=== PATIENT | male | born 1965 | race Caucasian/White ===

== ENCOUNTER 2017-01-17 09:02 | Inpatient (IN) | payer OTHER ==
[~2017-01-17] VITALS: Ht 180.3 cm; Wt 80.7 kg
[2017-01-17] VITALS (10 sets, daily range): BP systolic 101–128; BP diastolic 78–95
--- NOTE | ~2017-01-17 | S ---
[facility] [place] [address] SURGICAL PATH RPT PROCEDURE Name: KEENA DAS Room #: 542-P [facility] IN M.R.#: [id number] Admission: 01/17/17 Date of : 63 Discharge: 01/20/17 Report #: [id number] Path Case #: [id number] PATHOLOGY REPORT COLLECTION DATE: 01/18/2017 RECEIVED DATE: 01/19/2017 SUBMITTING PHYS: Dr. Breana Morales OTHER PHYS: Dr. London García SPECIMEN(S) RECEIVED: A.Appendiceal orifices bx B.Proximal ascending polyp x 3 C.Distal ascending polyp x 1 D.Proximal transverse polyp x 2 E.Mid transverse polyp x 2 F.25 cm polyp * * * * * * * * * * * * FINAL DIAGNOSIS: A. Appendiceal orifice, endoscopic biopsy: - Two fragments showing hyperplastic polyp. - Negative for dysplasia. B. Polyp, proximal ascending polyp x 3, endoscopic biopsy: - One fragment showing tubular adenoma without high-grade dysplasia. - Remainder of fragments of vegetable material as well as reactive hyperplastic changes without dysplasia. C. Polyp, distal ascending polyp, endoscopic biopsy: - One fragment showing cauterized tubular adenoma without high-grade dysplasia. - Second fragment showing hyperplastic polyp without dysplasia. D. Polyp, proximal transverse polyp x 2, endoscopic biopsy: - One fragment showing cauterized tubular adenoma without high-grade dysplasia. - Second fragment showing hyperplastic polyp without dysplasia. E. Polyp, mid transverse polyp x 2, endoscopic biopsy: - Cauterized hyperplastic polyp. - Negative for dysplasia. F. Polyp, 25 cm polyp, endoscopic biopsy: - 2.1 cm tubulovillous adenoma. - Negative for high-grade dysplasia. - Cauterized/inked margin showing unremarkable mucosa without dysplasia. (IUV:mgr; d/t: 01/22/17) PATHOLOGIST: Lisy Mccann M.D. REPORT ELECTRONICALLY SIGNED BY: Lisy Mccann M.D. [address] [address] SURGICAL PATH RPT PROCEDURE Name: KEENA DAS Room #: 542-P [facility] IN [facility].#: [id number] Admission: 01/17/17 Date of : 63 Discharge: 01/20/17 Report #: [id number] Path Case #: [id number] DATE/TIME: 01/22/2017 14:04 * * * * * * * * * * * * GROSS PATHOLOGY: A. Received in formalin labeled "Keena Das, appendiceal BX," are 3 segments of lundberg soft tissue measuring 0.5 x 0.2 x 0.2 cm in aggregate dimensions and ranging from 0.1 to 0.2 cm in maximum dimension. The specimen is submitted entirely in cassette A1. B. Received in formalin labeled " Keena Das, proximal ascending polyp x3," are more than 10 segments of lundberg soft tissue measuring 2.3 x 1.0 x 0.4 cm in aggregate dimensions and ranging from less than 0.1 to 0.6 cm in maximum dimension. The specimen is submitted entirely in cassette B1. C. Received in formalin labeled " Keena Das, distal ascending polyp," are 2 segments of lundberg soft tissue measuring 0.5 x 0.2 x 0.2 cm in aggregate dimensions and ranging from 0.2 to 0.3 cm in maximum dimension, along with very minute small dark green fragments. The specimen is submitted entirely in cassette C1. D. Received in formalin labeled " Keena Das, proximal transverse polyp 2," are 2 segments of lundberg soft tissue measuring 0.7 x 0.3 x 0.2 cm in aggregate dimensions and ranging from 0.3 to 0.4 cm in maximum dimension. The specimen is submitted entirely in cassette D1. E. Received in formalin labeled " Keena Das, mid transverse polyp 2," are 2 segments of lundberg soft tissue measuring 0.6 x 0.3 x 0.2 cm in aggregate dimensions and ranging from 0.2 to 0.4 cm in maximum dimension. The specimen is submitted entirely in cassette E1. F. Received in formalin labeled " Keena Das, polyp at 25 cm," is a 2.1 x 2.0 x 1.3 cm polypoid piece of lundberg soft tissue. The margin is inked and the tissue is sectioned perpendicular to the margin into 4 segments and submitted in its entirety in cassettes F1 and F2. (VAHE; 01/19/2017) CLINICAL HISTORY: GI bleed INITIAL CPT CODE(S): A; 11845 B; 25394 C; 64746 D; 37307 E; 85467 F; 42138 Professional services performed by [facility] at [address] [address] SURGICAL PATH RPT PROCEDURE Name: KEENA DAS Room #: 542-P DIS IN M.R.#: [id number] Admission: 01/17/17 Date of : 63 Discharge: 01/20/17 Report #: [id number] Path Case #: [id number] [address], [place] [address] Technical services performed by [facility] at [address] [place] [address], [place] [address]. [facility] [address] [place] [address] PHONE: [phone] DIRECTOR: Aristides Alves M.D. * * * END OF REPORT * * *
--- NOTE | ~2017-01-17 | HC ---
[facility] [place] [address] CONSULTATION Name: KEENA DAS Room #: 542-P [facility] IN ..#: [id number] Admission: 01/17/17 Attend Phys: Luca García MD, Discharge: 01/20/17 Date of : 63 Report #: [id number] THIS REPORT FOR: //name// CC: Ruddy Morales DO Luca García MD [facility] London Gillette MD DATE OF SERVICE: 01/18/2017 REASON FOR CONSULTATION: Lower GI bleed. 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 He developed maroon stools, nausea, and abdominal discomfort around 5:00 yesterday morning. He reports having had diarrhea the prior evening. He was seen at [facility] with these symptoms and was found to have a hemoglobin of 9.5. CT at [facility] showed a left upper kidney mass and endoluminal gastric masses consistent with polyps. The patient was transferred to [facility]. The gastroenterology service (Dr. Breana Morales) was consulted and the patient underwent an EGD, which showed no evidence for bleeding. Gastric polyps were seen; however, they were not resected/biopsied so as not to confuse the situation. The patient then underwent a tagged red blood cell scan, which showed suspected right colon activity concerning for hemorrhage. The patient was taken for mesenteric angiography, which showed no evidence for bleeding. The patient had continued bleeding and was monitored closely in the intensive care unit. He received 1 unit of packed red blood cells and he was taken for a colonoscopy today by Dr. Morales. Multiple large polyps were seen/removed except or a polyps at the appendiceal orifice. The largest polyp was located at 27 cm in the sigmoid colon. Hot snare polypectomy was performed here as well. The patient had immediate arterial bleeding after the pedunculated stalk was divided. Bleeding appeared to be arterial and was such that Dr. Morales was unable to visualize or control it. The patient has received 2 more units of packed red blood cells and has been relatively hemodynamically stable with a systolic blood pressure in the 120s and heart rate is at or slightly above 100 beats per minute and the patient was also mildly confused. I have been asked to see the patient for further evaluation and treatment. 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 PAST SURGICAL HISTORY: Includes exploratory laparotomy for a ruptured Meckel's diverticulum 8 years ago. The patient also underwent an appendectomy at that time. He developed ARDS and was hospitalized, here at [facility] for several weeks. He has also undergone a cholecystectomy. [address] [address] CONSULTATION Name: KEENA DAS Room #: 542-P DIS IN M.R.#: [id number] Admission: 01/17/17 Attend Phys: Luca García MD, Discharge: 01/20/17 Date of : 63 Report #: [id number] MEDICATIONS: Include Bystolic, Florinef, prednisone (10 mg q. a.m.; 5 mg q. p.m.) and omeprazole. ALLERGIES: No known drug allergies. FAMILY HISTORY: Significant for coronary artery disease in his father, who also had rectal cancer and likely had polyposis according the patient. SOCIAL HISTORY: The patient denies any use of tobacco or illicit drugs. He drinks alcohol socially. 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 REVIEW OF SYSTEMS: As per history of present illness. In addition, GENERAL: The patient denies unintentional weight loss. Denies fever or chills. HEENT: Denies changes in taste, vision, hearing, or smell. RESPIRATORY: Denies shortness of breath, COPD, or asthma. CARDIOVASCULAR: No chest pain or palpitations. GASTROINTESTINAL: As per history of present illness. GENITOURINARY: Denies dysuria, urgency, increased urinary frequency, or hematuria. MUSCULOSKELETAL: Denies myalgia or arthralgia. NEUROLOGIC: Denies headaches, numbness, or tingling. PSYCHIATRIC: Denies depression, anxiety, or suicidal ideations. SKIN AND INTEGUMENTARY: Denies new skin lesions, rashes, or moles. ENDOCRINE: Denies polydipsia, polyuria, heat or cold intolerance. HEMATOLOGIC: Denies easy bleeding or bruising. All other review of systems is negative. PHYSICAL EXAMINATION: VITAL SIGNS: Temperature 98.2, blood pressure 102/79, pulse 98, and respirations 21. GENERAL: This is a well-developed, well-nourished, mildly confused 51-year-old male patient who appears slightly distressed. HEENT: Atraumatic, normocephalic with moist mucosal membranes. Oropharynx is clear. NECK: Supple, no appreciable lymphadenopathy. Trachea is midline. CHEST: No respiratory distress. CARDIOVASCULAR: Regular rate and rhythm. ABDOMEN: Soft, but mildly tender to palpation with no rebound or guarding. No palpable masses. No appreciable hernias. EXTREMITIES: No clubbing, cyanosis or edema. NEUROLOGIC: Cranial nerves 2-12 are grossly intact. PSYCHIATRIC: Normal mood and affect. SKIN AND INTEGUMENTARY: No acute inflammatory changes, rashes or lesions are [facility] [address] [place] [address] CONSULTATION Name: KEENA DAS Room #: 542-P [facility] IN M.R.#: [id number] Admission: 01/17/17 Attend Phys: Luca García MD, Discharge: 01/20/17 Date of : 63 Report #: [id number] present. LABORATORY DATA: The patient's hemoglobin had gone from 9.5-9.0 yesterday. His most current hemoglobin after being given packed red blood cell is 9.1. It had dropped as low as 6.9 earlier today. White blood cell count was 11.4, hematocrit 25.3 and platelets 199. INR was 1.1. RADIOLOGIC STUDIES: As noted above including his CT scan from [facility], his nuclear medicine scan, and his mesenteric angiogram. IMPRESSION AND PLAN: This is a 51-year-old male patient with a lower gastrointestinal bleed, colonic (and gastric) polyposis, Bleckley's disease, gastroesophageal reflux disease, hypertension, and hypercholesterolemia. He will need emergent mesenteric angiography to attempt to identify the area of bleeding. If able to be identified, he may be a candidate for coil embolization with control of the hemorrhage. This must be undertaken emergently. I have discussed with interventional radiology (Dr. Ruddy Reyes), who has recommended potential CT angio to attempt to identify the bleeding as well. The patient is currently hemodynamically stable, but is requiring blood and is slightly confused. Further recommendations will be made pending results of that study. In addition, dependent upon the pathology from his colonoscopy, the patient will either need surveillance (conoscopy in 1 year) or resection. Continue treatment for Bleckley's disease, reflux and hypertension. I will follow along with you. I am available if needed for operative intervention. I sincerely appreciate the opportunity to participate in the care of this patient and we will leave further recommendations and orders in the electronic medical record as appropriate. <ELECTRONICALLY SIGNED> By: Bharat Torres MD, FACS 01/22/17 1407 1410 2223 Bharat Torres MD, FACS /nt
--- NOTE | ~2017-01-17 | EKG ---
[address] [place] [address] ELECTROCARDIOGRAM REPORT Name: KEENA DAS Room #: 241-P ADM IN M.R.#: [id number] Admission: 01/17/17 Attend Phys: Luca García MD, Discharge: Date of : 63 Report #: [id number] THIS REPORT FOR: //name// [facility] Test Date: 2017-01-17 Test Time: 12:07:01 Pat Name: KEENA DAS Department: Room: 241 P Gender: M Slag Worker: DAVID : 1965 Requested By: Luca García Order Number: [id number] MD: Chris Macias Measurements Intervals Patten Rate: 109 P: 41 WI: 148 QRS: 10 QRSD: 90 T: 32 QT: 318 QTc: 429 Interpretive Statements Sinus tachycardia Nonspecific ST segment abnormality Compared to ECG 10/02/2008 19:01:36 No significant changes Electronically Signed On 01-18-2017 7:41:25 CDT by Chris Macias [email or web address] <ELECTRONICALLY SIGNED> By: Chris Macias MD, [facility] 01/18/17 0741 D: 05/1206 06 Chris Macias MD, FACC /EPI
--- NOTE | ~2017-01-17 | P ---
[facility] [place] [address] PROCEDURE REPORT Name: KEENA DAS Room #: 241-P [facility] IN M.R.#: [id number] Admission: 01/17/17 Attend Phys: Luca García MD, Discharge: Date of : 63 Report #: [id number] THIS REPORT FOR: //name// CC: Luca García MD [facility] London Gillette MD DATE OF SERVICE: 01/17/2017 PATIENT OF: Dr. Luca García and Dr. London Gillette. PROCEDURE: Diagnostic EGD. INDICATION FOR PROCEDURE: This patient has had melanotic stool and drop in hemoglobin, uncertain etiology. EGD is being performed to evaluate a proximal source. Informed consent for this procedure was obtained prior to the administration of any medication. The risks of the procedure, which include bleeding, perforation, infection, complications of sedation, and the possibility I could miss something have been explained to the patient and he has indicated his consent by signing. Propofol and ketamine were slowly titrated before and during this procedure for the patient comfort by the anesthesia service. The [employer] upper videoscope was introduced through the upper esophageal sphincter and advanced under direct visualization to the third portion of the duodenum. Findings are noted on withdrawal of the scope. The duodenal mucosa appears normal throughout its entirety and no blood was seen in the duodenum, there is no obvious source of bleeding from the duodenum. Scope was withdrawn into the pylorus, which appears normal. Antrum, normal mucosa. Body, there are several large 1-2 cm in size polyps in the gastric body. None of these appear to have been bleeding. There is no blood in the stomach. I did not remove these polyps, I suspect they are secondary to proton pump inhibitors. There is retained food in the proximal stomach that I could not clear preventing visualization of this area, but there was no evidence of any blood in this area by either, the cardia and the fundus were visualized and appeared normal. I suspect he may have some element of gastroparesis for some reason. The scope was withdrawn to the esophagus. The Z-line is appropriately located at the top of the gastric folds and appears normal. The esophageal mucosa appears normal throughout its entirety. The scope was withdrawn. The patient was recovered in the room in ICU. He tolerated the procedure well. IMPRESSION: Gastric polyps as described above, not removed as the patient is having acute gastrointestinal bleed and so as not to confuse the issue. Other [address] [address] PROCEDURE REPORT Name: PIPPAKEENA Room #: 241-P [facility] IN ..#: [id number] Admission: 01/17/17 Attend Phys: Luca García MD, Discharge: Date of : 63 Report #: [id number] than that, normal esophagogastroduodenoscopy to the third portion of the duodenum. RECOMMENDATIONS: My recommendations at this point are to proceed with a nuclear medicine GI bleeding scan. We will monitor his H and H closely. He may need to have a gastric emptying study at some point. Thank you very much once again for allowing me to participate in his care, Dr. García and Dr. Gillette. <ELECTRONICALLY SIGNED> By: Breana Morales DO 01/18/17 1819 0851 1122 Breana Morales DO /nt
--- NOTE | ~2017-01-17 | H ---
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 He was transferred here from [facility] where he had went in with GI bleed, shortly after 5:00 a.m. this morning. The patient has a history of a small bowel resection with ruptured Meckel's diverticulum and complicated with ARDS, this is 5-6 years ago. He had been doing normal state of health until 05:00 a.m. this morning and had fair amount of maroon stool with some abdominal discomfort. He did have some mild nausea with this. He did receive 3/4 of a unit of blood on the way up here. His hemoglobin has continued to drop slowly upper 9s to 8.4 recently. It was 8.2, 4 hours ago, so he is somewhat holding stable, looks to be active bleeding in the right side of the colon. Dr. Morales of GI has just recently did a colonoscopy, there was nothing on the EGD is my understanding. Hemodynamically, he remained stable. He has been in sinus tachycardia had run up to 140-160 currently 115-120 with a systolic pressure of 105-110. No chest pain or angina. He had a negative stress test approximately 5 years ago in the office, he does not have documented coronary artery disease, only has mild hypertension. He takes Bystolic 5 mg for this. He also has underlying Salinas's, and he takes Florinef and prednisone daily, as well as omeprazole. PAST MEDICAL HISTORY: Cornell's, the ruptured Meckel's diverticulum, small bowel resection, ARDS after the complicated surgery, and hypercholesterolemia. FAMILY HISTORY: Father does have some premature coronary disease, recently stented. Brother and sister, they do not have coronary artery disease. ALLERGIES: No known drug allergies. 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 He is , 2 sons. Social alcohol use. No tobacco, no drug use. REVIEW OF SYSTEMS: Negative except for some occasional nocturia, usual bowel movements, regular. PHYSICAL EXAMINATION: VITAL SIGNS: Pulse is 120, blood pressure of 106/80. HEENT: Eyes reveal xanthelasmas. Pharynx is clear. NECK: Shows preserved upstrokes without JVD or bruits. LUNGS: Clear. [facility] [address] [place] [address] HISTORY AND PHYSICAL Name: KEENA DAS Room #: 542-P DIS IN M.R.#: [id number] Admission: 01/17/17 Attend Phys: Luca García MD, Discharge: 01/20/17 Date of : 63 Report #: [id number] CARDIOVASCULAR: Tachycardia, S1 and S2. No significant murmur or gallop. ABDOMEN: Soft. There was no significant rebound or tenderness. Bowel sounds are noted. SKIN: Warm and dry, without xanthoma or ulcer. MUSCULOSKELETAL: No significant arthritic changes are noted. NEUROLOGIC: Intact. ASSESSMENT: 1. Gastrointestinal bleed, appears to be right-sided colon, possible ruptured diverticulum or arteriovenous malformation. 2. Cornell's disease, on chronic prednisone and Florinef. 3. Hypertension, currently treated with Bystolic. 4. Hypercholesterolemia. RECOMMENDATIONS AND PLAN: Currently hemodynamically stable. We are doing serial hemoglobins. Dr. Reyes of interventional radiology is considering going to the interventional lab and possible coiling as there was noted to be active bleeding in the right colon by Dr. Morales just 2 hours ago. It looks like this bleeding rate has slowed down significantly. We will continue with serial H and H. GI will help to currently manage. We will also maintain his prednisone and Florinef. This can hold off until the a.m. We will continue to follow closely for hemodynamics, and await Dr. Reyes's input and possible intervention for this right colon bleed. Thank you for asking me to assist in the care of this patient. <ELECTRONICALLY SIGNED> By: Luca García MD, FACC 01/22/17 0845 [id number] 32 Luca García MD, FACC /nt
--- NOTE | ~2017-01-17 | D ---
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 Subsequently, was seen by GI and General Surgery. He initially had interventional radiology procedure, we could not find any active bleeding. He had received 2 units of blood initially and then continued to have persistent bleeding, Dr. Morales taken to the GI lab and there was seen fairly extensive polyps. There was one large polyp 27 mm, my understanding that was removed that had brisk bleeding Dr. Reyes of interventional radiology emergently took him and perform coiling of the branch off the inferior mesenteric artery, which was bleeding site, it was not clear that this was the original site of the bleed, we did not have any evidence or could not find any other sources of the bleeding. The mucosa was relatively normal. I should state it was a 3 cm polyp that was pedunculated at 27 mm in the sigmoid colon, we clarify, the hot snare was performed then it bled profusely. He received a total of 6 units of blood. They have gone 8.8 to 8.1, which I felt was at dilutional to 8.4 and then 7.2 overnight with now 7.5, so I will agree to discharge today. He has underlying Wyand[place]'s disease and some hypertension. We have been holding his nebivolol. He will go home on his Florinef 0.4 a day and a prednisone 10:00 a.m., 5:00 p.m., Livalo 4 mg, omeprazole 40. H and H will be obtained in 48 hours. If he has any significant bleeding or cramping or pain that initially lead to this, he is to go to the [facility] or come emergently back to [facility]. I have discussed the above with GI, General Surgery, and Interventional Radiology. If we have continued bleeding then a CTA of abdomen and pelvis with a delayed imaging is recommended. The fact that he is stable and feels well. He is usually has had knowledge of his bleeding issue. He is pain free and negative exam. Hemoglobin 7.5. DISCHARGE DIAGNOSES: 1. Gastrointestinal bleed. 2. Acute blood loss anemia secondary to gastrointestinal bleed. 3. Cornell's disease, stable. 4. Hypertension. 5. Polypectomy with OSCAR branch closure coil. Thank you for asking me to assist in the care of this patient. <ELECTRONICALLY SIGNED> By: Luca García MD, [facility] 01/22/17 0845 1103 1312 Luca García MD, FAC /nt
[2017-01-17] MEDS ORDERED: BYSTOLIC 5 MG5 M1 PO (10:47)
[2017-01-17] MEDS ORDERED: PREDNISONE 10 M10 MG PO (10:47)
[2017-01-17] MEDS ORDERED: FLORINEF ACETA0.1 MG PO (10:48)
[2017-01-17] MEDS ORDERED: PREDNISONE 5 MG5 M1 PO (10:48)
[2017-01-17] MEDS ORDERED: LIVALO4 MG PO (10:49)
[2017-01-17] MEDS ORDERED: OMEPRAZOLE 20 M20 MG PO (10:49)
[2017-01-17 12:04] LABS: HEMATOCRIT 25.5 % (42.0-52.0)
[2017-01-17 12:13] LABS: CALCIUM 8.2 mg/dL (8.5-10.1); CREATININE 0.8 mg/dL (0.7-1.3); POTASSIUM 4.3 mmol/L (3.5-5.1)
[2017-01-17 14:38] LABS: HEMATOCRIT 23.1 % (42.0-52.0); HEMOGLOBIN 8.2 gm/dL (14.0-18.0)
[2017-01-17 16:11] LABS: HEMATOCRIT 23.7 % (42.0-52.0); HEMOGLOBIN 8.4 gm/dL (14.0-18.0)
[2017-01-17 19:15] LABS: HEMATOCRIT 21.6 % (42.0-52.0); HEMOGLOBIN 7.7 gm/dL (14.0-18.0)
[2017-01-18] VITALS (68 sets, daily range): BP systolic 90–139; BP diastolic 58–94
[2017-01-18 00:25] LABS: HEMATOCRIT 23.7 % (42.0-52.0); HEMOGLOBIN 8.3 gm/dL (14.0-18.0)
[2017-01-18 05:01] LABS: HEMATOCRIT 23.5 % (42.0-52.0); HEMOGLOBIN 8.1 gm/dL (14.0-18.0)
[2017-01-18 08:31] LABS: HEMATOCRIT 19.7 % (42.0-52.0); HEMOGLOBIN 6.9 gm/dL (14.0-18.0)
[2017-01-18 09:01] LABS: HEMOGLOBIN 7.2 gm/dL (14.0-18.0)
[2017-01-18 09:39] LABS: HEMATOCRIT 20.6 % (42.0-52.0)
[2017-01-18 15:38] LABS: HEMATOCRIT 25.3 % (42.0-52.0); HEMOGLOBIN 8.8 gm/dL (14.0-18.0); MCH 31.6 pg (26.0-34.0); MCHC 34.9 g/dL (28.0-37.0); MCV 90.5 fL (80.0-100.0); RBC 2.79 mil/uL (4.50-6.00); RDW 13.5 % (10.5-14.5); WBC 11.4 thou/uL (4.0-11.0)
[2017-01-18 15:52] LABS: FIBRINOGEN 173.1 mg/dL (210-360); INR 1.1; PROTIME 11.2 Seconds (9.3-11.4)
[2017-01-18 17:32] LABS: HEMATOCRIT 27.3 % (42.0-52.0); HEMOGLOBIN 9.1 gm/dL (14.0-18.0)
[2017-01-18 21:24] LABS: HEMATOCRIT 26.2 % (42.0-52.0); HEMOGLOBIN 8.9 gm/dL (14.0-18.0)
[2017-01-19] VITALS (20 sets, daily range): BP systolic 101–122; BP diastolic 69–90
[2017-01-19 05:27] LABS: HEMATOCRIT 22.8 % (42.0-52.0); HEMOGLOBIN 8.1 gm/dL (14.0-18.0); MCH 31.2 pg (26.0-34.0); MCHC 35.5 g/dL (28.0-37.0); RBC 2.59 mil/uL (4.50-6.00); WBC 11.3 thou/uL (4.0-11.0)
[2017-01-19 05:34] LABS: CALCIUM 6.8 mg/dL (8.5-10.1); CREATININE 0.9 mg/dL (0.7-1.3); POTASSIUM 4.4 mmol/L (3.5-5.1)
[2017-01-19 11:49] LABS: HEMATOCRIT 23.9 % (42.0-52.0); HEMOGLOBIN 8.4 gm/dL (14.0-18.0)
[2017-01-20 04:44] VITALS: BP 118/76
[2017-01-20 07:26] LABS: HEMATOCRIT 20.6 % (42.0-52.0); HEMOGLOBIN 7.2 gm/dL (14.0-18.0)
[2017-01-20 10:37] VITALS: BP 137/88
[2017-01-20 10:53] LABS: HEMATOCRIT 21.8 % (42.0-52.0); HEMOGLOBIN 7.5 gm/dL (14.0-18.0)
[2017-01-20 11:42] VITALS: BP 137/88
== END 2017-01-20 14:59 | disposition home or self-care (01) | DRG 357 ==
LOC: ICU 09:02 → 5S 01-19 20:34
PROVIDERS: Internal Medicine Cardiovascular Disease; Internal Medicine Gastroenterology; Surgery
PROC: 0DBK8ZZ Excision of Ascending Colon, Via Natural or Artificial Opening Endoscopic (ICD-10-PCS; principal; 2017-01-17)
PROC: 04LB3DZ Occlusion of Inferior Mesenteric Artery with Intraluminal Device, Percutaneous Approach (ICD-10-PCS; principal; 2017-01-17)
PROC: 0DJ08ZZ Inspection of Upper Intestinal Tract, Via Natural or Artificial Opening Endoscopic (ICD-10-PCS; principal; 2017-01-17)
PROC: 0DBL8ZZ Excision of Transverse Colon, Via Natural or Artificial Opening Endoscopic (ICD-10-PCS; principal; 2017-01-17)
PROC: B4151ZZ Fluoroscopy of Inferior Mesenteric Artery using Low Osmolar Contrast (ICD-10-PCS; 2017-01-18)
PROC: B4181ZZ Fluoroscopy of Bilateral Renal Arteries using Low Osmolar Contrast (ICD-10-PCS; 2017-01-18)
DX: K92.2 Gastrointestinal hemorrhage, unspecified (principal); E27.1 Primary adrenocortical insufficiency; D62 Acute posthemorrhagic anemia; K21.9 Gastro-esophageal reflux disease without esophagitis; I10 Essential (primary) hypertension; K63.5 Polyp of colon; E78.00 Pure hypercholesterolemia, unspecified; I25.10 Atherosclerotic heart disease of native coronary artery without angina pectoris; E78.5 Hyperlipidemia, unspecified; Z90.49 Acquired absence of other specified parts of digestive tract; Z79.899 Other long term (current) drug therapy; Z82.49 Family history of ischemic heart disease and other diseases of the circulatory system; Z80.8 Family history of malignant neoplasm of other organs or systems
CPT/HCPCS: 10078; 10785; 62110; 62900; 85076

== ENCOUNTER 2019-04-02 10:19 | Inpatient (IN) | payer OTHER ==
[~2019-04-02] VITALS: Ht 147.3 cm; Wt 79.9 kg
[~2019-04-02 10:19] MED LIST: BYSTOLIC 5 MG5 M1 PO; FLORINEF ACETA0.1 MG PO; LIVALO4 MG PO; OMEPRAZOLE 20 M20 MG PO; PREDNISONE 10 M10 MG PO; PREDNISONE 5 MG5 M1 PO
[2019-04-02 11:34] LABS: HEMATOCRIT 35.9 % (42.0-52.0); HEMOGLOBIN 12.4 gm/dL (14.0-18.0); MCH 32.3 pg (26.0-34.0); MCHC 34.5 g/dL (28.0-37.0); MCV 93.8 fL (80.0-100.0); RBC 3.82 mil/uL (4.50-6.00); RDW 12.8 % (10.5-14.5); WBC 8.4 thou/uL (4.0-11.0)
[2019-04-02 11:48] LABS: CALCIUM 10.4 mg/dL (8.5-10.1); CREATININE 0.9 mg/dL (0.7-1.3); POTASSIUM 4.1 mmol/L (3.5-5.1); TOTAL BILIRUBIN 0.4 mg/dL (<0.1-1.0); TOTAL PROTEIN 7.7 g/dL (6.4-8.2)
[2019-04-02 12:31] VITALS: BP 132/95
--- NOTE | 2019-04-02 14:14 | NUR ---
ASSUMED CARE AT 0700, SHIFT ASSESSMENT DONE, ADMISSION DONE. VSS. NSR ON TELE. IV TEAM STARTED 18G RFA, IV PROTONIX GIVEN. EGD CONSENT SIGNED. SCHEDULED FOR EGD LATER TODAY. WILL CONTINUE TO ASSESS AND ASSIST WITH ADLs NEEDED.
[2019-04-02 19:30] VITALS: BP 112/71
[2019-04-03 01:40] VITALS: BP 102/58
--- NOTE | 2019-04-03 04:11 | NUR ---
ASSUMED PT'S CARE AT 1910; PT. ON BED; AOX4; DURING ASSESSMENT NO C/O PAIN; NO HS MEDICATION; ASSESSMENT PERFORMED; ASSESSMENT CHARGED; FOLLOWING POC; ABLE TO REST THROUGH THE NIGHT WITH EYES CLOSED; NO BM; ST. [facility]; MONITORING; WILL PASS ON REPORT;
[2019-04-03 04:32] VITALS: BP 120/69
[2019-04-03 05:14] LABS: HEMATOCRIT 30.3 % (42.0-52.0); HEMOGLOBIN 10.5 gm/dL (14.0-18.0); MCHC 34.6 g/dL (28.0-37.0); MCV 95.1 fL (80.0-100.0); RBC 3.18 mil/uL (4.50-6.00); RDW 13.3 % (10.5-14.5); WBC 9.5 thou/uL (4.0-11.0)
[2019-04-03 07:35] VITALS: BP 116/73
[2019-04-03 09:22] VITALS: BP 120/69
--- NOTE | 2019-04-03 10:14 | NUR ---
ASSUMED CARE OF PT AT SHIFT CHANGE. ASSESSMENT CHARTED. MEDS GIVEN PER NOV. PT ALERT AND ORIENTED, VSS DENIES PAIN, INDEPENDENT. NO C/O NAUSE/VOMIT. DC ORDERS ACKNOWLEDGED AND IMPLEMENTED. DC PAPERWORK DISCUSSED WITH PT, COMMUNICATES UNDERSTANDING. IV REMOVED, TELE REMOVED. PT LEFT UNIT WITH ALL BELONGINGS ACCOMPANIED BY SPOUSE.
--- NOTE | 2019-04-04 14:06 | PATH ---
[facility] [place] [address] PATHOLOGY RPT PROCEDURE Name: PIPPAKEENA Sánchez Room #: 206-P [facility] IN M.R.#: [id number] ������������������ Admission: 04/02/19 ������������������ Date of : 63 Discharge: 04/03/19 Report #: [id number] Path Case #: [id number] [facility] Accession Number: [id number] . 01 Material submitted: . stomach - POLYP AT GASTRIC . 01 Clinical history: . Pre-OP DX: Melena Post-OP DX: Ulcerated bleeding, gastric polyp . 02 Diagnosis: Polyp, gastric polyp, polypectomy: - Fundic gland polyp with congestion and ulceration. - Negative for dysplasia or malignancy. (IUV:yoselin; 04/04/2019) QMS/04/04/2019 . 02 Electronically signed: . Lisy Mccann MD, Pathologist NPI- [id number] . 01 Gross description: . Received in formalin labeled "Keena Dsa, polyp at gastric," is a 2.1 x 1.8 x 1.9 cm polypoid piece of lundberg soft tissue. The margin is inked and the tissue is sectioned perpendicular to the margin and submitted entirely in cassette A1 through A5. Additionally received in the same container are multiple fragments of lundberg soft tissue measuring 1.5 x 0.6 x 0.1 cm in aggregate dimensions. The specimen is filtered and entirely submitted in cassette A6. (TSD; 04/02/2019) TOB/TOB . 02 Pathologist provided ICD-10: K31.7, K31.89, K26.9 . 02 CPT . 149479 Specimen Comment: A courtesy copy of this report has been sent to Specimen Comment: [phone], , . Specimen Comment: Report sent to ,DR ANDREWS / DR ROMERO Performed at: [address] [id number] MD Pako Tarango MD Phone: [phone] Performed at: 02 [place] [address] PATHOLOGY RPT PROCEDURE Name: KEENA DAS Room #: 206-P [facility] IN M.R.#: [id number] ������������������ Admission: 04/02/19 ������������������ Date of : 63 Discharge: 04/03/19 Report #: [id number] Path Case #: [id number] [address] [facility], [place], [place] [id number] MD Lisy Mccann MD Phone: [phone]
== END 2019-04-03 10:15 | disposition home or self-care (01) | DRG 378 ==
LOC: PRE 10:19 → 2N 10:36 → EROBS 10:36 → PRE 10:36 → 2N 11:02
PROVIDERS: Internal Medicine Gastroenterology; Nurse Practitioner Adult Health; ADMIT Internal Medicine Cardiovascular Disease
DX: K25.4 Chronic or unspecified gastric ulcer with hemorrhage (principal); E27.1 Primary adrenocortical insufficiency; I10 Essential (primary) hypertension; E78.00 Pure hypercholesterolemia, unspecified; E78.5 Hyperlipidemia, unspecified; R00.0 Tachycardia, unspecified; K31.7 Polyp of stomach and duodenum; Z80.0 Family history of malignant neoplasm of digestive organs; Z82.49 Family history of ischemic heart disease and other diseases of the circulatory system; Z90.49 Acquired absence of other specified parts of digestive tract; Z79.899 Other long term (current) drug therapy
CPT/HCPCS: 10081; 10797; 62110; 62900; 70005

== ENCOUNTER → 2019-04-03 | Outpatient (CLI) | payer OTHER | LOC: CAT 10:30 | DX: Z13.6 Encounter for screening for cardiovascular disorders (principal); E78.00 Pure hypercholesterolemia, unspecified; I25.10 Atherosclerotic heart disease of native coronary artery without angina pectoris ==

== ENCOUNTER → 2021-06-10 | Outpatient (CLI) | payer OTHER ==
[~2021-06-10] VITALS: Ht 177.8 cm; Wt 83.9 kg
[~2021-06-10] MED LIST changes: +PREDNISONE 5 MG5 MG PO; +PROTONIX40 M2 PO
--- NOTE | 2021-06-14 12:07 | PATH ---
[facility] [place] [address] PATHOLOGY RPT PROCEDURE Name: KEENA DAS Room #: REG [facility] Clark.#: [id number] Admission: 06/10/21 Date of : 63 Discharge: Report #: [id number] Path Case #: [id number] [facility] Accession Number: [id number] . 01 Material submitted: . PART A: gastrointestinal site - GASTRIC POLYP PART B: esophagus - DISTAL ESOPHAGUS BIOPSY R/O RICO'S. Modifiers: distal PART C: gastrointestinal site - POLYP APPENDICEAL ORIFICE PART D: cecum - CECAL POLYPS PART E: colon - ASCENDING COLON POLYP. Modifiers: ascending PART F: rectum - RECTAL POLYP . 01 Clinical history: . ESOPHAGOGASTRODUODENOSCOPY/COLONOSCOPY GI BLEED . 02 Diagnosis: A. Gastric mucosa, gastric polyp, biopsy: - Fundic gland polyp. - Negative for dysplasia or malignancy. . B. Gastric and squamous mucosa, distal esophagus, biopsy: - Squamous mucosa with a slight nonspecific lymphocytic infiltrate with mild reactive changes. - Gastric mucosa with foveolar hyperplasia and mild chronic inflammation. - Negative for intestinal metaplasia. . C. Colonic mucosa, polyp appendiceal orifice, biopsy: - Fragments of colonic mucosa compatible with tubular adenoma and sessile serrated adenoma/polyp. . D. Colonic mucosa, cecal polyps, biopsy: - Tubular adenoma, fragments. . E. Colonic mucosa, ascending colon polyp, biopsy: - Tubular adenoma. . F. Rectal type mucosa, rectal polyp, biopsy: - Chronic inflammation and hyperplastic changes. - Negative for dysplasia or malignancy. (SCA:pit; 06/13/2021) [facility] 06/13/2021 1507 Local . 02 Electronically signed: . Nash Sánchez DO, Pathologist NPI- [id number] [address] [address] PATHOLOGY RPT PROCEDURE Name: KEENA DAS Room #: REG CL Tonja#: [id number] Admission: 06/10/21 Date of : 63 Discharge: Report #: [id number] Path Case #: [id number] . 01 Gross description: . A. Received in formalin labeled "Keena Das gastric polyp" are 2 fragments of lundberg-brown soft tissue measuring 1.2 x 1.4 x 0.9 cm and 1.8 x 1.6 x 0.8 cm. The surgical resection margins are inked black and each polyp is serially sectioned and submitted in cassettes A1-A2. . B. Received in formalin labeled "Keena Das distal esophagus BX rule out Rico's" are multiple fragments of lundberg-brown soft tissue measuring in aggregate 1.2 x 0.6 x 0.3 cm. The specimen is submitted entirely in B1. . . C. Received in formalin labeled "Keena Das polyp appendiceal orifice" are multiple fragments of lundberg-brown soft tissue measuring in aggregate 0.9 x 0.4 x 0.3 cm. The specimen is submitted entirely in C1. . D. Received in formalin labeled "Keena Das cecal polyps" are 2 fragments of lundberg-brown soft tissue measuring 0.3 x 0.2 x 0.2 cm and 0.6 x 0.4 x 0.3 cm. The specimen is submitted entirely in D1. . E. Received in formalin labeled "Keena Das ascending colon polyp" are multiple fragments of lundberg-brown soft tissue measuring in aggregate 1.2 x 0.6 x 0.3 cm. The specimen is submitted entirely in E1. . F. Received in formalin labeled "Keena Das rectal polyp" is a fragment of lundberg-brown soft tissue measuring 0.4 x 0.3 x 0.2 cm. The specimen is submitted entirely in F1.([facility]; 06/12/2021) [facility] 06/13/2021 1504 Local . 02 Pathologist provided ICD-10: K31.7, K29.50, K31.9, D12.0, D12.2, K62.89 . 02 CPT . 698913, 635849, 850554, 539662, 245282, 327536 Specimen Comment: A courtesy copy of this report has been sent to [phone] Specimen Comment: [phone] Specimen Comment: Report sent to / DR ROSE Performed at: 01 [facility] [address] [facility] [address], [place] [id number] MD Jorge Luis Varner MD Phone: [phone] Performed at: 02 [facility] [address] [id number] MD Aristides Alves MD Phone: [phone]
--- NOTE | 2021-06-15 16:17 | P ---
[facility] [place] [address] [place] [address] PROCEDURE REPORT Name: KEENA DAS [facility] [id number] Admission: 06/10/21 Attend Phys: Saeid Escobedo Discharge: Date of : 63 Report #: [id number] THIS REPORT FOR: cc: FAM - No family physician/PCP FAM - No family physician/PCP Saeid Rodríguez MD ~ cc: Keena Das MD, Luca García MD DATE OF SERVICE: 06/10/2021 DATE OF PROCEDURE: 06/10/2021 PROCEDURE PERFORMED: Colonoscopy with polypectomies. HISTORY OF PRESENT ILLNESS: The patient is a 56-year-old male with a history of colon polyps, at one time had a GI bleed in 2017, nuclear med scan at that time was positive for the right colon or small bowel. He had an arteriogram at one point. He denies any blood in his stools. Plan is for a colonoscopy for history of polyps. He does have a family history of colon cancer in his father. DESCRIPTION OF PROCEDURE: The risks and benefits of the procedure were explained to the patient, those risks including but not limited to bleeding, perforation and the risk of sedation. He understood these risks and gave informed consent. Sedation was given using propofol per anesthesia. Next, a digital rectal exam was initially performed, which was normal. Next, using a standard Olympus colonoscope, the scope was placed in the patient's anus and advanced under direct vision to the cecum. The overall prep was good. In the cecum and the appendiceal orifice, there was a possible polyp biopsy 4 mm in size. This was removed with cold forceps. Also, in the cecum were two 5 mm sessile polyps. These were removed by snare cautery. The ileocecal valve was normal. In the ascending colon, a 4 mm sessile polyp was noted also removed by snare cautery. The transverse, descending and sigmoid colon were normal. In the rectum, a 3 mm sessile polyp was noted. This was removed by cold forceps. On retroflexion, no abnormalities were noted. The scope was then withdrawn and the procedure terminated. The patient tolerated the procedure well. IMPRESSION: 1. Small colonic polyps as described above. 2. Otherwise, normal colonoscopy. RECOMMENDATIONS: 1. Await biopsy results. 2. Repeat colonoscopy in [address] [address] PROCEDURE REPORT Name: KEENA DAS Room #: REG AK[facility] Evangelista#: [id number] Admission: 06/10/21 Attend Phys: Saeid Escobedo Discharge: Date of : 63 Report #: [id number] Thank you for allowing me to participate in his care. <ELECTRONICALLY SIGNED> By: Saeid Rodríguez MD 06/15/21 1617 1104 0022 Saeid Rodríguez MD /nt
--- NOTE | 2021-06-15 16:17 | P ---
[facility] [place] [address] [place] [address] PROCEDURE REPORT Name: KEENA DAS Room #: REG [facility] [id number] Admission: 06/10/21 Attend Phys: Saeid Escobedo Discharge: Date of : 63 Report #: [id number] THIS REPORT FOR: cc: BIPIN - No family physician/PCP FAM - No family physician/PCP Saeid Rodríguez MD ~ DATE OF SERVICE: 06/10/2021 PROCEDURE PERFORMED: Upper endoscopy with biopsies and polypectomy. HISTORY OF PRESENT ILLNESS: The patient is a 56-year-old male with a history of gastroesophageal reflux disease, on daily PPI therapy. Denies any dysphagia or odynophagia. He has a known history of large gastric polyps, one was removed in 2019 and had a bleed after polypectomy. He denies any obvious bright red blood per rectum or melena. Plan is for EGD and colonoscopy today. DESCRIPTION OF PROCEDURE: The risks and benefits of the procedure were explained to the patient, those risks including but not limited to bleeding, perforation and the risk of sedation. He understood these risks and gave informed consent. Sedation was given using propofol per anesthesia. Next, using a standard Olympus upper endoscope, the scope was placed in the patient's mouth and advanced under direct vision through the esophagus, stomach and into the second portion of the duodenum. The upper and mid esophagus was normal in appearance. In the distal esophagus, several pink mucosal tongues were noted, which may be a possible Armas's esophagus. Biopsies were obtained. No evidence of esophagitis. The scope was then introduced into the stomach, multiple large fundic gland type polyps were noted. These ranged in size from 6 mm to 1-2 cm, one in particular was somewhat friable and had possible adenomatous change; therefore, I removed this polyp by snare cautery. There was no evidence of bleeding after cauterization. However, due to his previous history of bleeding following polypectomy, I did place a single endoclip. No bleeding noted after endoclip placement as well. The polyp was retrieved with a Dawkins net. The gastric antrum was normal. The pylorus was normal and patent. The duodenal bulb, first and second portion were all normal. The scope was then withdrawn and the procedure terminated. The patient tolerated the procedure well. IMPRESSION: 1. Large gastric polyps as described above. 2. 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 3. Otherwise, normal upper endoscopy. RECOMMENDATIONS: 1. Await biopsy results. 2. Continue PPI therapy. 3. We will proceed with colonoscopy next today. [address] [address] PROCEDURE REPORT Name: PIPPAKEENA Gonzalo Room #: REG [facility]ITALAlex[facility]ru#: [id number] Admission: 06/10/21 Attend Phys: Saeid Escobedo Discharge: Date of : 63 Report #: [id number] Thank you for allowing me to participate in his care. <ELECTRONICALLY SIGNED> By: Saeid Rodríguez MD 06/15/21 4047 [id number] [id number] Saeid Rodríguez MD /nt
== END | disposition home or self-care (01) ==
LOC: GI 09:42
PROVIDERS: ATTEND Specialist
DX: Z12.11 Encounter for screening for malignant neoplasm of colon (principal); Z86.010 Personal history of colon polyps; Z80.0 Family history of malignant neoplasm of digestive organs; D12.1 Benign neoplasm of appendix; D12.2 Benign neoplasm of ascending colon; D12.0 Benign neoplasm of cecum; K31.7 Polyp of stomach and duodenum; K29.50 Unspecified chronic gastritis without bleeding; K62.1 Rectal polyp; K21.9 Gastro-esophageal reflux disease without esophagitis; I10 Essential (primary) hypertension; E78.5 Hyperlipidemia, unspecified; G47.30 Sleep apnea, unspecified; Z98.890 Other specified postprocedural states; Z79.899 Other long term (current) drug therapy; Z90.49 Acquired absence of other specified parts of digestive tract; Z87.19 Personal history of other diseases of the digestive system
CPT/HCPCS: 62110; 62900